=== PATIENT | male | born 1995 | race Caucasian/White ===

== ENCOUNTER 2018-02-08 13:18 | Emergency (ER) | payer MEDICAID, MEDICARE ==
[~2018-02-08] VITALS: Ht 180.3 cm; Wt 90.0 kg
[2018-02-08] MEDS ORDERED: DIVA500T2 PO (13:37)
[2018-02-08] MEDS ORDERED: ARIP5TAB13 PO (13:38)
[2018-02-08 13:40] VITALS: BP 126/80
[2018-02-08] MEDS ORDERED: PRAZ2CAP2 PO (13:40)
== END 2018-02-08 14:18 | disposition home or self-care (01) ==
LOC: ED 13:45
DX: F43.11 Post-traumatic stress disorder, acute (principal); F31.9 Bipolar disorder, unspecified
CPT/HCPCS: 99284